=== PATIENT | male | born 1990 | race African-American/Black ===

== ENCOUNTER 2018-05-03 06:30 | Emergency (ER) | payer SELFPAY ==
[~2018-05-03] VITALS: Ht 185.4 cm; Wt 74.8 kg
[2018-05-03 06:44] VITALS: BP 126/72
--- NOTE | 2018-05-03 06:54 | PHYS DOC ---
Past History Past Medical History: No Pertinent History Past Surgical History: No Surgical History Smoking: Non-smoker Alcohol Use: None Drug Use: Marijuana Adult General Chief Complaint Chief Complaint: Palpitations HPI HPI 28-year-old male presents with palpitations. The patient was at work overnight and felt like he was having some intermittent periods where he could feel his heart rate and it felt rapid. He also has had a "strange feeling" in his left arm even before he got to work. He tried to ignore it while he was working, but when he got off shift he decided he should be evaluated. He denies shortness of breath or diaphoresis. He took a 5 hour energy around 9:30 last night and felt more strange afterwards. He has not had this feeling before when he is taken a five hour energy. His father has heart disease, but he is unsure how young his father was when he started having trouble daily doesn't like to talk about it. The patient has no known cardiac disease. He denies fever or chills. Review of Systems Review of Systems Constitutional: Denies fever or chills [] Eyes: Denies change in visual acuity, redness, or eye pain [] HENT: Denies nasal congestion or sore throat [] Respiratory: Denies cough or shortness of breath [] Cardiovascular: No additional information not addressed in HPI [] GI: Denies abdominal pain, nausea, vomiting, bloody stools or diarrhea [] : Denies dysuria or hematuria [] Musculoskeletal: Tingling in left arm. [] Integument: Denies rash or skin lesions [] Neurologic: Denies headache, focal weakness or sensory changes [] Endocrine: Denies polyuria or polydipsia [] All other systems were reviewed and found to be within normal limits, except as documented in this note. Allergies Allergies Allergies Coded Allergies Type Severity Reaction Last Updated Verified No Known Drug Allergies 11/02/13 No Physical Exam Physical Exam Constitutional: Well developed, well nourished, no acute distress, non-toxic appearance. [] HENT: Normocephalic, atraumatic, bilateral external ears normal, oropharynx moist, no oral exudates, nose normal. [] Eyes: PERRLA, EOMI, conjunctiva normal, no discharge. [] Neck: Normal range of motion, no tenderness, supple, no stridor. [] Cardiovascular:Heart rate regular rhythm, no murmur [] Lungs & Thorax: Bilateral breath sounds clear to auscultation [] Abdomen: Bowel sounds normal, soft, no tenderness, no masses, no pulsatile masses. [] Skin: Warm, dry, no erythema, no rash. [] Back: No tenderness, no CVA tenderness. [] Extremities: No tenderness, no cyanosis, no clubbing, ROM intact, no edema. [] Neurologic: Alert and oriented X 3, normal motor function, normal sensory function, no focal deficits noted. [] Psychologic: Affect normal, judgement normal, mood anxious. [] Current Patient Data Vital Signs Vital Signs Date Time Temp Pulse Resp B/P (MAP) Pulse Ox O2 Delivery O2 Flow Rate FiO2 05/03/18 06:44 98.3 70 16 100 EKG EKG Sinus rhythm, rate 64, normal axis, no ST elevations or depressions.[] Radiology/Procedures Radiology/Procedures [] Impressions: Portable chest, 05/03/2018: HISTORY: Chest pain The heart size and pulmonary vascularity are normal. No pulmonary infiltrate is seen. There is no evidence of pleural fluid or pneumothorax. IMPRESSION: No acute cardiopulmonary abnormality is detected. Electronically signed by: Rudy Felton MD (05/03/2018 7:31 AM) [facility] DICTATED AND SIGNED BY: RUDY FELTON MD DATE: 05/03/18 0731 CC: TAI GRAHAM DO; PCPELIZABETH Course & Med Decision Making Course & Med Decision Making Pertinent Labs and Imaging studies reviewed. (See chart for details) Patient's labs are unremarkable. His troponin is negative. His chest x-ray is unremarkable. His EKG is unremarkable. The patient's urinalysis is significant for marijuana. It is possible that the patient's odd feeling as a combination of marijuana use and energy drinks such as bilateral energy. His symptoms do not appear to be cardiac in nature or life-threatening. He is stable for discharge at this time. [] Dragon Disclaimer Dragon Disclaimer This electronic medical record was generated, in whole or in part, using a voice recognition dictation system. Departure Departure: Impression: Primary Impression: Palpitations Disposition: 01 HOME, SELF-CARE Condition: STABLE Referrals: PCPELIZABETH (PCP) Patient Instructions: Palpitations, [id number] TAI GRAHAM DO May 03, 2018 06:54
[2018-05-03] MEDS ORDERED: IV NORMAL SALINE 1,000ML 1,000 ML IV ONE (07:30)
--- NOTE | 2018-05-03 07:34 | RAD ---
Portable chest, 05/03/2018: HISTORY: Chest pain The heart size and pulmonary vascularity are normal. No pulmonary infiltrate is seen. There is no evidence of pleural fluid or pneumothorax. IMPRESSION: No acute cardiopulmonary abnormality is detected. Electronically signed by: Rudy Felton MD (05/03/2018 7:31 AM) [facility]
[2018-05-03 07:42] LABS: AMPHETAMINE/METHAMPHETAMINE NEG (NEG); BARBITURATES NEG (NEG); BENZODIAZEPINES NEG (NEG); CANNABINOIDS POS (NEG); COCAINE NEG (NEG); METHADONE NEG (NEG); OPIATES NEG (NEG); PHENCYCLIDINE NEG (NEG)
[2018-05-03 07:50] LABS: BILIRUBIN,URINE NEG (NEG); CLARITY,URINE CLEAR; COLOR,URINE AMBER; GLUCOSE,URINE NEG (NEG); NITRITE,URINE NEG (NEG); UROBILINOGEN,URINE 0.2 mg/dL (0.2 mg/dL)
[2018-05-03 07:51] LABS: BACTERIA,URINE 0 /HPF (0-FEW); RBC,URINE 0 /HPF (0-2); SQUAMOUS EPITHELIAL CELL,UR OCC /LPF; WBC,URINE 0 /HPF (0-4)
[2018-05-03 07:51] LABS: BASO % 0 % (0-3); EOS % 1 % (0-3); HEMATOCRIT 39.6 % (39.0-53.0); HEMOGLOBIN 13.6 g/dL (13.0-17.5); LYMPH # 2.6 x10^3/uL (1.0-4.8); LYMPH % 50 % (24-48); MEAN CORPUSCULAR HEMOGLOBIN 35 pg (25-35); MEAN CORPUSCULAR HGB CONC 34 g/dL (31-37); MEAN CORPUSCULAR VOLUME 102 fL (79-100); MONO # 0.5 x10^3/uL (0.0-1.1); MONO % 10 % (0-9); NEUT # 2.1 x10^3uL (1.8-7.7); NEUT % 39 % (31-73); PLATELET COUNT 124 x10^3/uL (140-400); RED BLOOD COUNT 3.88 x10^6/uL (4.30-5.70); RED CELL DISTRIBUTION WIDTH 12.6 % (11.5-14.5); WHITE BLOOD COUNT 5.3 x10^3/uL (4.0-11.0)
[2018-05-03 08:00] LABS: ALBUMIN 3.9 g/dL (3.4-5.0); ALBUMIN/GLOBULIN RATIO 1.2 (1.0-1.7); CALCIUM 8.8 mg/dL (8.5-10.1); CREATININE 1.2 mg/dL (0.7-1.3); GFR 88.6; POTASSIUM 3.7 mmol/L (3.5-5.1); TOTAL BILIRUBIN 0.7 mg/dL (0.2-1.0); TOTAL PROTEIN 7.1 g/dL (6.4-8.2)
--- NOTE | 2018-05-03 17:37 | EKG ---
[address] [address] Test Date: 2018-05-03 Test Time: 06:56:24 Pat Name: CARLOTA OAKES Department: Room: Gender: M Language Pathologist: SAIMA : 1990 Requested By: TAI GRAHAM Order Number: [id number] Reading MD: Daniel oR Measurements Intervals [place] Rate: 64 P: 90 FL: 144 QRS: 79 QRSD: 94 T: 58 QT: 382 QTc: 398 Interpretive Statements SINUS RHYTHM Electronically Signed On 05-08-2018 8:40:14 STENCIL TYPIST by Daniel Ro
== END 2018-05-03 09:15 | disposition home or self-care (01) ==
LOC: ER 06:30
DX: R00.2 Palpitations (principal); R20.2 Paresthesia of skin; F12.10 Cannabis abuse, uncomplicated; R55 Syncope and collapse
CPT/HCPCS: 36415; 71045; 80053; 80307; 81001; 84484; 85025; 93005; 96360; 99284-25; J7030